=== PATIENT | male | born 1965 | race Caucasian/White ===

== ENCOUNTER 2019-03-24 14:27 | Inpatient (IN) | payer OTHER ==
[~2019-03-24] VITALS: Ht 152.4 cm; Wt 83.8 kg
[2019-03-24 14:29] VITALS: BP 128/77
[2019-03-24] MEDS ORDERED: PROTONIX40 M2 PO (14:47)
[2019-03-24] MEDS ORDERED: NORCO 5-325 TA1 EAC1 PO (14:48)
[2019-03-24] MEDS ORDERED: CULTURELLE KID1 EAC1 PO (14:48)
[2019-03-24] MEDS ORDERED: FEOSOL325 M1 PO (14:49)
[2019-03-24] MEDS ORDERED: TESSALON PERLE100 M1 PO (14:49)
[2019-03-24] MEDS ORDERED: ZOFRAN4 MG PO (14:50)
[2019-03-24] MEDS ORDERED: VENTOLIN HFA 1818 GM INH (14:50)
[2019-03-24] MEDS ORDERED: OLANZAPINE15 M1 PO (14:51)
[2019-03-24] MEDS ORDERED: SODIUM BICARBO650 M3 PO (14:51)
[2019-03-24] MEDS ORDERED: COLACE100 MG PO (14:52)
[2019-03-24] MEDS ORDERED: LOPRESSOR50 MG PO (14:52)
[2019-03-24] MEDS ORDERED: D3-501250 MCG PO (14:55)
[2019-03-24] MEDS ORDERED: NORVASC 2.5 MG2.5 M1 PO (14:56)
[2019-03-24] MEDS ORDERED: DEPAKOTE ER500 M1 PO (14:57)
[2019-03-24 16:20] LABS: HEMATOCRIT 33.2 % (42.0-52.0); HEMOGLOBIN 10.6 gm/dL (14.0-18.0); MCH 27.1 pg (26.0-34.0); MCHC 31.9 g/dL (28.0-37.0); MCV 85.1 fL (80.0-100.0); PLATELET COUNT 388 thou/uL (150-400); RDW 17.3 % (10.5-14.5); WBC 14.7 thou/uL (4.0-11.0)
[2019-03-24 16:28] LABS: CALCIUM 8.9 mg/dL (8.5-10.1); CREATININE 1.5 mg/dL (0.7-1.3); POTASSIUM 3.8 mmol/L (3.5-5.1)
[2019-03-24 16:34] LABS: ALBUMIN 2.5 g/dL (3.4-5.0); TOTAL BILIRUBIN 0.2 mg/dL (<0.1-1.0); TOTAL PROTEIN 8.8 g/dL (6.4-8.2)
[2019-03-24 16:36] LABS: ABSOLUTE NEUTROPHILS 11.2 thou/uL (1.4-8.2); PLATELET ESTIMATE NORMAL
[2019-03-24 16:55] VITALS: BP 113/63
--- NOTE | 2019-03-24 18:55 | NUR ---
TECH TO TRANSPORT PATIENT TO CT SCAN THEN TO ROOM 440
[2019-03-24 18:58] VITALS: BP 113/65
[2019-03-24 19:50] VITALS: BP 140/71
[2019-03-25 03:20] VITALS: BP 99/55
--- NOTE | 2019-03-25 04:21 | NUR ---
PT TO UNIT AT 2210. ORIENTED TO UNIT, NURSE AND CALL LIGHT. ADMISSION ASSESSMENT COMPLETED. UNABLE TO SIGN CONSENTS DUE TO INABILITY TO WRITE, BUT VERBAL CONSENT WAS GIVEN. WOUNDS PHOTOGRAPHED AND PUT IN CHART. A&OX4. PAIN MEDS GIVEN ALONG WITH OTHER PM MEDS. MOTHER CALLED TO CHECK IN, PROVIDED UPDATE. PT ON ISOLATION FOR MRSA IN WOUND. WILL CONTINUE TO MONITOR TRHOUGHOUT THE NIGHT BUT CURRENTLY SLEEPING.
[2019-03-25 06:11] LABS: HEMATOCRIT 32.6 % (42.0-52.0); HEMOGLOBIN 10.3 gm/dL (14.0-18.0); MCH 27.2 pg (26.0-34.0); MCHC 31.7 g/dL (28.0-37.0); MCV 85.7 fL (80.0-100.0); RBC 3.8 mil/uL (4.50-6.00)
[2019-03-25 06:27] LABS: CREATININE 1.5 mg/dL (0.7-1.3); POTASSIUM 3.7 mmol/L (3.5-5.1)
[2019-03-25 08:15] VITALS: BP 117/57
[2019-03-25 15:50] VITALS: BP 128/69
--- NOTE | 2019-03-25 16:00 | NUR ---
Received awake on bed. Due medications given as prescribed, able to swallow meds w/o diffculty. On room air, PRN O2 at 1lpm. Vital signs stable. On blood sugar monitoring-taken and recorded accordingly, with sliding scale insulin given as prescribed. With urostomy in place- secured; output measured and recorded accordingly. With colostomy in place- output measured and recorded accordingly. With SL at R AC- on IV antibiotics. With ST 4 pressure sore on buttocks- pt turned regularly. Visited by his mother today. Pt complained of pain, due PRN pain medications given as prescribed. 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 Assisted in eating, drinking and ADLs. Asked physician re: adding another pain medication or increasing frequency of current one because pt still complains of pain with current medication. Wound dressing on pt's bottom intact- changed this morning by Dr Tse. To continue monitoring patient.
[2019-03-25 19:44] VITALS: BP 141/67
[2019-03-26 04:15] VITALS: BP 134/69
[2019-03-26 08:20] VITALS: BP 135/63
--- NOTE | 2019-03-26 08:31 | NUR ---
PT LYING IN BED. LORTAB PROVIDING PAIN RELIEF. NO NEEDS VOICED. CALL LIGHT WITHIN REACH. FREQUENT OBSERVATION.
--- NOTE | 2019-03-26 11:30 | HC ---
[facility] [place] [address] CONSULTATION Name: AIDA HWANG Room #: 440-P ADM IN M.R.#: [id number] Admission: 03/24/19 Attend Phys: Kenzie Blanton MD Discharge: Date of : 67 Report #: [id number] THIS REPORT FOR: cc: Karin Morales,Scotty Ludwig MD ~ THIS REPORT FOR: //name// CC: Karin Blanton DATE OF SERVICE: 03/25/2019 WOUND CARE CONSULTATION REASON FOR CONSULTATION: The patient with paraplegia secondary to spina bifida with infected decubitus ulcers. HISTORY OF PRESENT ILLNESS: The patient is a 54-year-old gentleman with chronic immobility, paraplegia secondary to spina bifida, admitted with concern of infected decubitus ulcers. He has a history of MRSA and cultures were done. CT scan done on admission showed decubitus ulcers of bilateral ischial regions with possible bony destruction of the right ischium. The patient has a diverting colostomy and ileal conduit. Wound care is consulted due to his decubitus ulcers to evaluate for any possible need of general surgical debridement. PAST MEDICAL HISTORY: 1. Spina bifida with chronic immobility. 2. History of MRSA infection. 3. History of renal insufficiency. PAST SURGICAL HISTORY: Ileal conduit, right abdomen colostomy, left abdomen. ALLERGIES: POLLEN AND PHENYTOIN. MEDICATIONS: Include Protonix, [place], Tessalon, Feosol, Zofran, Ventolin, Lopressor, Colace, Norvasc, and Depakote. SOCIAL HISTORY: The patient has been chronically immobile due to his spina bifida. REVIEW OF SYSTEMS: Noncontributory. PHYSICAL EXAMINATION: GENERAL: Shows chronically ill-appearing obese, middle-aged gentleman, who is alert, pleasant, and conversant. [facility] [address] [facility] [place] [address] CONSULTATION Name: AIDA HWANG Room #: 440-P [facility] IN .R.#: [id number] Admission: 03/24/19 Attend Phys: Kenzie Blanton MD Discharge: Date of : 67 Report #: [id number] HEENT: Mucous membranes are moist. NECK: Supple. ABDOMEN: Soft with right-sided ileal conduit and left-sided colostomy. There is an apparent abdominal wall hernia in the midline with some excoriation of the skin and superficial crusted eschar. EXTREMITIES: Lower extremities are atrophic and flaccid with no wounds. Examination of the patient's back shows some chronic excoriation of the skin of the sacrum and buttocks. He has a significant chronic stage 4 pressure ulcer of the right ischium measuring 5 cm x 4 cm x 1 cm deep with exposed bone at the base. This appears chronic. There is no soft tissue debridement needed. Bone is palpable with clinical osteomyelitis. The patient has a contralateral left ischial pressure ulcer measuring 7 x 8 cm, which is superficial with chronic granulation tissue. In the right groin crease, there is maceration of the skin with granulation. IMPRESSION: 1. Spina bifida with paraplegia. 2. Immobility. 3. Status post cerebrovascular accident. 4. Diabetes mellitus type 2 with skin ulceration. 5. Right ischial stage 4 pressure ulcer with palpable exposed bone, possible osteomyelitis on CT scan. 6. Chronic stage 4 pressure ulcer of left ischium with chronic granulation tissue. 7. Open granulating wound of right groin. PLAN: 1. Order zinc oxide barrier cream for the skin of his sacrum and buttocks. 2. Quarter strength Dakin's packing to the open wounds of the right and left ischium and the right groin crease, ABD pads in the groin folds to absorb moisture. 3. The patient's ischial decubitus wound did not require soft tissue debridement. Ultimately, Plastic Surgery consultation for debridement and consideration of flap repair may be necessary for healing of his right ischial wound. We would recommend topical treatment quarter strength Dakin's packing twice daily, IV antibiotics and stabilization. No General Surgery debridement needed. No evidence of abscess or deep tunneling. May consider wound VAC therapy for right ischial wound. Wound care team will follow. <ELECTRONICALLY SIGNED> By: Scotty Tse MD 03/26/19 1130 [id number] Scotty Tse MD /nt
[2019-03-26 16:02] VITALS: BP 148/71
--- NOTE | 2019-03-26 16:24 | HC ---
[facility] [place] [address] CONSULTATION Name: AIDA MALAVE Room #: 440-P ADM IN M.R.#: [id number] Admission: 03/24/19 Attend Phys: Kenzie Blanton MD Discharge: Date of : 67 Report #: [id number] THIS REPORT FOR: cc: Karin Morales,Karin Hager,Kodak Landin MD ~ THIS REPORT FOR: //name// CC: Karin Blanton DATE OF SERVICE: 03/25/2019 CONSULTATION: Infectious diseases. HISTORY OF PRESENT ILLNESS: Aida Malave is a 54-year-old white male [place] [facility] his jail to acute care because of bilateral ischial decubitus ulcers, osteomyelitis, and resistant hiram. The patient is paraplegic due to spina bifida. His care was further complicated by diabetes as well as schizophrenia. He tells me he had intact skin last summer, but has developed progressive decubitus ulcers. He was prescribed 6 weeks of Zosyn. He has had VAC dressings. He cannot really give me a clear time line. The patient had cultures of the wound done at [facility] where he lives. The right hip grew moderate growth of Pseudomonas aeruginosa which was resistant to ceftazidime and intermediately susceptible to Cipro, cefepime and aztreonam. 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 This organism was resistant to all antibiotics tested except for amikacin including resistance to meropenem. Clinically, the patient really does not feel bad. He has paraplegia with chronic neuropathic pain from the waist down. It does not sound like this is any different and he is requesting Percocet on a regular basis for pain control. PAST MEDICAL HISTORY: The patient as noted has diabetes with hypertension. He has schizophrenia with bipolar components. He has had a stroke in the past. He has paraplegia from spina bifida. PAST SURGICAL HISTORY: Includes an ileal conduit for urinary diversion, colostomy for fecal diversion. ALLERGIES: I do not believe the patient has any drug allergies. SOCIAL HISTORY: The patient has been living in a jail since his father in 2004. He said at that time he quit using tobacco and alcohol as well. He is generally bedfast. He says he will get up to the wheelchair "when the staff has time." [facility] [address] [place] [address] CONSULTATION Name: AIDA MALAVE Room #: 440-P [facility] IN ..#: [id number] Admission: 03/24/19 Attend Phys: Kenzie Blanton MD Discharge: Date of : 67 Report #: [id number] REVIEW OF SYSTEMS: Negative. The patient denies any fevers, chills, sweats. Denies any head, neck or chest complaints. Denies nausea, vomiting. He has colostomy and ileostomy without problems. He has chronic neuropathic pain in his lower extremity. PHYSICAL EXAMINATION: GENERAL: The patient appears his stated age, somewhat unkempt, but pleasant and interactive. Not in any distress. VITAL SIGNS: Normal. The patient is afebrile. SKIN: Shows no rash nor exanthem. He has bilateral ischial wounds. The right is worse than the left. It measures about 6 x 4 cm with significant depth. There is also an area of wound reported under the panus of his abdomen in the groin. I was unable to see there because of patient discomfort trying to lift the pannus. ENT: Negative. Dentition is good. HEART: Sounds normal. LUNGS: Clear. ABDOMEN: Belly obese, soft, not tender. Lower midline ventral hernia Extremities - paraplegia LABORATORY DATA: The white count on admission was 14.7, is now down to 12, hemoglobin 10.3, platelets 348,000. Electrolytes are normal. BUN 51, creatinine 1.5. The alkaline phosphatase is normal. The SGOT is elevated at 79, SGPT at 69. The urine cultures growing Proteus. Blood culture is negative so far. CT scan suggests bony destruction under the wound on the right. The report on the left ischium was a bit ambiguous. This was a CT without contrast, which has some limitations in diagnosing early osteomyelitis. Cultures from the jail as noted above. Carbapenem-resistant Acinetobacter baumannii (CRAB) is extremely difficult bacteria to treat. We are often left with antibiotics, which are very toxic like polymyxin or colistin. There are newer drugs, which have demonstrated good activity against CRAB including Vabomere, Avycaz, Zerbaxa. Tygacil sometimes showed good activity. Sometimes minocycline or rifampin have been used as synergy with other drugs. This organism demonstrates susceptibility to amikacin, which is also very expensive and toxic drug. The resistance to tobramycin and gentamicin suggest that the amikacin susceptibility may not be stable. At this time, I would like to stop the antibiotic therapy and repeat the culture. We need to get a culture of the isolate to test for antibiotic susceptibility. These drugs are all difficult, so I hesitate to use empiric therapy, particularly in a patient that is essentially asymptomatic. Generally, the kind of medications taken to control this organism are not affordable at a [facility] unit level reimbursement. The patient will probably need to go [facility] [address] [place] [address] CONSULTATION Name: AIDA MALAVE Room #: 440-P ADM IN ..#: [id number] Admission: 03/24/19 Attend Phys: Kenzie Blanton MD Discharge: Date of : 67 Report #: [id number] to an LT or tertiary care center. We can initiate routine wound care per Dr. Granados. I will check a hemoglobin A1c, TSH and zinc level looking for any metabolic impediments to wound healing. We will need a low air loss mattress as the patient has bilateral wounds and really cannot be rolled in any position off the wound. We will have case management start working on placement. We will notify infection control. I know in [place] this organism is reportable to the state. I am not sure about [place]. The patient will need strict contact isolation. We can discontinue the vancomycin as this generally will not be effective for these isolates. Although the patient does have a positive urine culture, this comes from an ileal conduit. Asymptomatic bacteriuria is expected from this urine and does not require specific treatment. Dr Guthrie will return on Wednesday. I will leave it to him to analyze the cultures and see what treatment optionsw are available. I appreciate the opportunity of input in the care of this complex patient. We will get some of the study started. Dr. Guthrie will return on Wednesday for further followup and antibiotic choice. <ELECTRONICALLY SIGNED> By: Kodak Lr MD 03/26/19 1624 [id number] Kodak Lr MD /cecilio
--- NOTE | 2019-03-26 18:23 | NUR ---
Assumed care of pt at 0700. Pt a&ox4. C/o pain. Prn pain meds administered. Dressings changed. Some bleeding noted with dressing change. Q2h turn. Urostomy and colostomy bag in place. Fall precautions in place. No other concerns noted.
[2019-03-26 20:00] VITALS: BP 144/74
[2019-03-27 04:06] LABS: GLYCOHEMOGLOBIN (HGB A1C) 5.7 % (4.8-5.6)
[2019-03-27 04:25] VITALS: BP 112/69
[2019-03-27 07:23] VITALS: BP 122/63
--- NOTE | 2019-03-27 08:00 | NUR ---
PT LYING IN BED. LORTAB AND OXY IR PROVIDING PAIN RELIEF. RESTING COMFORTABLY. NO NEEDS VOICED. CALL LIGHT WITHIN REACH. FREQUENT OBSERVATION.
--- NOTE | 2019-03-27 09:56 | NUR ---
Assess due to pt with hx spina bifida and admitted with sacral wound infection bilateral IT stage IV wounds. wound care following. BG good control and pt eating 100% of all meals. No hx wt loss per pt. Pt would like to have Ensure Max supplement bid-will order. Low nutrition risk otherwise.
--- NOTE | 2019-03-27 11:31 | NUR ---
Received awake on bed. Due medications given as prescribed- able to swallow meds w/o difficulty. A+O. On room air. Vital signs stable. On blood sugar monitoring- taken and recorded accordingly. On carb controlled diet- tolerating well; no nausea, no vomiting and no abdominal pain noted. With suprapubic catheter in place- draining well; with colostomy in place- checked, output measured and recorded accordingly. With sacral wound- dressing in place; C/D/I, pt turned frequently. Assisted in ADLs. With SL at R Hand. Maintained on isolation due to MRSA. On Latex allergy precautions. A/W wound culture- to obtain specimen. Complained of pain, due PRN pain medications given as prescribed. To continue monitoring patient.
--- NOTE | 2019-03-27 15:27 | NUR ---
PT ADMITTED RELATED TO INFECTED SACRAL WOUND, ELEVATED LFT, RENAL INSUFF. CM REVIEWED CHART AND SPOKE WITH CARE TEAM. CM MET WITH PT AT BEDSIDE THIS DAY. PT IS A&O X4. CM ROLE INTRODCUED. PT INDICATED HE LIVES OVER AT [facility] AND THAT HE HAD BEEN THERE A FEW YEARS. PT INDICATED HIS MOTHER IS HIS EMERGENCY CONTACT AND THAT SHE LIVES IN [place]. PT INDICATED FACILITY HAD USED CECILIO LIFT, HOSPITAL BED, AND WHEELCHAIR TO ASSIST HIM WITH MOBILITY CARDIAC CARE NURSE. PT INDICATED HE HOPED TO BE ABLE TO RETURN TO [facility] ONCE MEDICALLY STABLE. PT WAS AWARE AND CM SPOKE WITH HIM ABOUT POSSIBLE GOING TO LTAC DUE TO HIGH COST OF RECOMMENDED IV ABX UPON DC. PT WAS RELUCTANT BUT UINDERSTOOD INDICATED THAT HE DIDN'T HAVE A PREFERENCE FOR ANY SPECIFIC LTAC. PT WON'T HAVE REV CODES SO WOULD BE SITE NUTERAL. CM TO SEND REFERRAL. CM TO FOLLOW INDICATED WITH DC PLANNING.
[2019-03-27 16:02] VITALS: BP 145/69
[2019-03-27 20:09] VITALS: BP 135/76
--- NOTE | 2019-03-28 02:20 | NUR ---
ASSUMED CARE OF PT AT 1900HRS. PT IS AOX4 AND LETS NEEDS BE KNOWN. FALL PRECAUTION IN PLACE. PT REPORTED SOME PAIN AND WAS TREATED WITH PRN PAIN MEDS. PT TURNED Q2H. RN SPOKE TO PT'S MOTHER (ATUL) AND ATUL TOLD LIKE TO BE INVOLVED IN PT'S DC PLANNING. PT WAS ABLE TO GET COMFORTABLE AND SLEEP PART OF THE SHIFT. VSS AND NO S/S OF ACURE DISTRESS. WILL CONTINUE TO MONITOR.
[2019-03-28 07:43] VITALS: BP 108/64
--- NOTE | 2019-03-28 09:36 | NUR ---
OSTOMY CARE CALLED TO SEE PT POUCHES ON SEVERAL DAYS? PT DID NOT BRING ANY SUPPLIES TO HOSP,ALERT AND COOPERATIVE, UROSTOMY STOMA RED VIABLE BUDDED, PERISTOMAL AREA INTACT, NEW POUCH COLTON PRECUT CONVEX 1 02/25' APPLIED AND CONNECTED TO DEP DRAINAGE, CLEAR YELLOW URINE NOTED, NEW POUCH COLTON CUT TO FIT COLOSTOMY, STOMA PINK VIABLE SLIGHTLY BUDDED W/ SOFT FORMED STOOL, SUPPLIES PLACED AT BS, WILL FOLLOW PRN RECOMMENDATIONS; CHANGE APPLIANCES Q 3-5 DAYS AND PRN, SUPPLIES AT BS BUILDING CUSTODIAL SUPERVISOR AWARE
[2019-03-28 15:07] VITALS: BP 132/77
--- NOTE | 2019-03-28 16:18 | NUR ---
CARE TEAM DETERMINING ID PT NEEDS SURGICAL INTERVETNION. ID FOLLOWING AWAITING CULTURES. CM TO FOLLOW INDICATED WITH DC PLANNING. CLINICAL UPDATES SENT TO [facility].
--- NOTE | 2019-03-28 19:45 | NUR ---
Received awake on bed. Due medictions given as prescribed, able to swallow meds w/o difficulty. A+O. On room air. Vital signs stable. Assisted in ADLs, pt paraplegic. Assisted in eating and drinking, compliant with supplements. Pt turned regularly on his side. With SL at R hand- intact. On blood sugar monitoring- taken and recorded accordingly. With urostomy and colostomy in place- both changed today by ostomy nurse- output measured and recorded accordingly. Maintained on isolation due to MRSA. On latex protocol as well. With dressing at sacrum- changed today; C/D/I. Pt on low airloss mattress. CM informed that pt's mother wants to be involved and updated re: placement. Wound cultures done and sent this morning by manufacturing supervisor 2nd shift, a/w cultures. To continue monitoring patient.
[2019-03-28 21:15] VITALS: BP 137/63
--- NOTE | 2019-03-29 02:45 | NUR ---
ASSUMED CARE OF PT AT 1900HRS. PT IS AOX4 AND LETS NEEDS BE KNOWN. FALL PRECAUTION IN PLACE. PT TURNED Q2H. PT REPORTED SOME PAIN AND WAS TREATED WITH PRN PAIN MEDS. PT WAS ABLE TO GET COMFORTABLE AND SLEEP PART OF THE SHIFT. VSS AND NO S/S OF ACUTE DISTRESS. WILL CONTINUE TO MONITOR.
[2019-03-29 08:00] VITALS: BP 127/74
--- NOTE | 2019-03-29 11:04 | NUR ---
Received awake on bed. Due medications given as prescribed, able to swallow meds w/o difficulty. On room air. Vital signs stable. On carb controlled diet- tolerating well, assisted in eating and drinking- compliant with supplements- no nausea, no vomiting and no abdominal pain noted. On blood sugar monitoring- taken and recorded. With SL at R hand. With urostomy in place- draining well, output measured and recored accordingly; with colostomy in place- output measured and recorded accordingly. Maintained on isolation due to MRSA. Pt paraplegic, assisted in ADLs, turned on his sides frequently, on low airloss mattress. Complained of pain, due PRN pain medication given as prescribed. With sacral wound- dressing in place; photo to be taken and dressing to be changed today. Falls bundle in place.
--- NOTE | 2019-03-29 12:17 | NUR ---
WOUND CARE F/U ROUNDING W/ DR HARLEEN RUIZ, WOUNDS ASSESSED L ISCHIAL AND R TROCHANTER, SOME RED VIABLE TISSUE PRESENT, MINIMAL YELLOW SLOUGH, PT ALERT, COOPERATIVE, DESIGN TEACHER INFORMED OF NEED FOR PHOTOS TODAY. REMAINS ON LOW AIR LOSS, REMINDED OF IMPORTANCE OF OFF LOADING, PRESSURE RELIEF RECOMMENDATIONS CONT CURRENT TX,GENTAMICIN,DAKINS DAILY. CONT LOW AIR LOSS PUMP TO BED STAFF AWARE
[2019-03-29 16:09] VITALS: BP 118/72
--- NOTE | 2019-03-29 16:58 | NUR ---
CM CALLED TRANSFER CENTER AT SPOKE WITH [facility]IN[facility] INFO FAXED FOR REVIEW FOR POSSIBLE ADMISSION FOR BONY DEBRIDEMENT AND FLAP RECONSTRUCTION. PROVIDED DR. COOK'S CONTACT NUMBER. TRANSFER FORM AND [employer] FORM PLACED WITH CHART COPY IN PT'S W[employer]. CM SPOKE WITH PT'S MOTHER SHE ASKED TO BE UPDATED ON TRANSFER STATUS. CM TO FOLLOW INDICATED WITH DC PLANNING.
[2019-03-29 19:15] VITALS: BP 121/72
[2019-03-30 05:14] VITALS: BP 117/70
[2019-03-30 07:41] VITALS: BP 87/62
--- NOTE | 2019-03-30 07:52 | NUR ---
ASSUMED CARE AROUND 191. AXOX3. ISO MAINTAINED. VSS. PERSISTENT PAIN TO GENERALIZED BODY. WHILE GIVING REPORT TO INCOMING RN, DISCOVERED THAT IV CATHETER WAS PULLED OUT. INCOMING RN AT BEDSIDE. NO S/S ACUTE DISTRESS NOTED OR REPORTED AT THIS TIME. CARE TRNASFERRED TO INCOMING RN AT THIS TIME.
--- NOTE | 2019-03-30 11:02 | NUR ---
OSTOMY CARE UROSTOMY POUCH LOOSE, NEW POUCH COLTON 1 1/4' CONVEXITY APPLIED AND CONNECTED TO DEP DRAINAGE, STOMA PINK VIABLE SLIGHTLY BUDDED W/ CLEAR YELLOW URINE NOTED, POUCH CHANGED TO COLOSTOMY STOMA, STOMA PINK VIABLE, FLAT W/ SKIN SURFACE, NEW POUCH COLTON CUT TO FIT APPLIED W/ ADAPT RING UNDER WAFER, SOFT DARK BROWNISH/GREEN STOOL NOTED, PT ALERT AND COOPERATIVE, SUPPLIES AT BS RECOMMENDATIONS CONT ROUTINE OSTOMY CARE, CHANGE APPLIANCES Q 3-5DAYS AND PRN TIN FLOPPER AWARE
[2019-03-30 12:21] VITALS: BP 127/75
--- NOTE | 2019-03-30 13:28 | NUR ---
DISCHARGE PLANNING. PATIENT RESIDES AT [facility][1]. PLAN IS FOR PATIENT TO RETURN TO [facility], POSSIBLY TODAY. PATIENT CLINCAL INFORMATION FAXED TO [facility] ADMISSIONS. CALL PLACED TO [facility] TO NOTIFY. FOLLOWING.
[2019-03-30] MEDS ORDERED: GENTAMICIN SULF15 GM TOP (16:27)
--- NOTE | 2019-03-30 16:48 | NUR ---
ONCE ИРИНА DEGROOT ROUNDS AND PUTS IN FINAL ABX RECS CALL KELLI AT [facility] . WITH DRUG AND FOR TRASPORT. SHE WILL PROVIDE NUMBER FOR REPORT AND FAX FOR ORDERS.
--- NOTE | 2019-03-30 18:40 | NUR ---
Assumed patient care at 0715. Vital signs stable. Patient has had a Student Nurse assisting him with cares and medications until approximately 1600. Patient requires total care. Colostomy bag and Ileostomy Bags changed per Ostomy nurse. Dr Guthrie and Dr Mccloud came to assess patient, as well as Dr Swann. Discharge is Pending, plan is for tomorrow. Patient no longer has an IV. He is supposed to get a PICC Line placed prior to Discharge. Will report to on-comimg nurse.
[2019-03-30 19:30] VITALS: BP 115/71
--- NOTE | 2019-03-31 07:16 | NUR ---
ASSUMED PT CARE AROUND 1929. AXOX3. VSS. PAIN MEDS ADMIN PER MD ORDER. COLOSTOMY/UROSTOMY INTACT. NO S/S ACUTE DISTRESS NOTED OR REPORTED AT THIS TIME. WILL CONT TO MONITOR FOR ANY CHANGES IN CONDITION.
[2019-03-31 07:43] VITALS: BP 111/69
[2019-03-31 08:53] LABS: ABSOLUTE NEUTROPHILS 5.8 thou/uL (1.4-8.2); BASOPHILS 0.9 % (0.0-2.0); EOSINOPHILS 5.7 % (0.0-3.0); HEMATOCRIT 34.8 % (42.0-52.0); HEMOGLOBIN 10.8 gm/dL (14.0-18.0); LYMPHOCYTES 23.9 % (24.0-44.0); MCH 26.6 pg (26.0-34.0); MCV 85.8 fL (80.0-100.0); MONOCYTES 9.8 % (1.0-8.0); PLATELET COUNT 333 thou/uL (150-400); POLYS 59.7 % (36.0-66.0); RBC 4.05 mil/uL (4.50-6.00); RDW 16.2 % (10.5-14.5); WBC 9.7 thou/uL (4.0-11.0)
[2019-03-31 09:03] LABS: ALBUMIN 2.4 g/dL (3.4-5.0); CALCIUM 8.9 mg/dL (8.5-10.1); CREATININE 1.8 mg/dL (0.7-1.3); POTASSIUM 4.2 mmol/L (3.5-5.1); TOTAL BILIRUBIN 0.2 mg/dL (<0.1-1.0); TOTAL PROTEIN 8.7 g/dL (6.4-8.2)
[2019-03-31 12:02] VITALS: BP 115/71
--- NOTE | 2019-03-31 18:48 | NUR ---
Patient was discharged at approximately 1800 with Transport to [facility]. Patient's vital signs stable. Wound care completed after taking pictures. Unable to measure sacral area wound due to patient's intolerance and bleeding. Patient attempted to sign Discharge Paperwork, gave up because his hands are contracted and he was shaking. Discharge packet sent with patient, as well as Colostomy, Ileostomy and wound care supplies. POC followed.
== END 2019-03-31 18:36 | DRG 592 ==
LOC: ER 14:27 → 4S 17:57 → EROBS 17:57 → 4S 18:14 → 4W 03-27 17:17
PROVIDERS: Internal Medicine Infectious Disease; Nurse Practitioner Family; Specialist; ADMIT Internal Medicine
DX: L89.154 Pressure ulcer of sacral region, stage 4 (principal); E43 Unspecified severe protein-calorie malnutrition; G82.20 Paraplegia, unspecified; M86.8X8 Other osteomyelitis, other site; E11.69 Type 2 diabetes mellitus with other specified complication; N18.9 Chronic kidney disease, unspecified; F31.9 Bipolar disorder, unspecified; E11.622 Type 2 diabetes mellitus with other skin ulcer; E66.9 Obesity, unspecified; B96.4 Proteus (mirabilis) (morganii) as the cause of diseases classified elsewhere; B96.5 Pseudomonas (aeruginosa) (mallei) (pseudomallei) as the cause of diseases classified elsewhere; F20.9 Schizophrenia, unspecified; I12.9 Hypertensive chronic kidney disease with stage 1 through stage 4 chronic kidney disease, or unspecified chronic kidney disease; D64.9 Anemia, unspecified; Z86.73 Personal history of transient ischemic attack (TIA), and cerebral infarction without residual deficits; Z93.3 Colostomy status; Z93.50 Unspecified cystostomy status; Z88.8 Allergy status to other drugs, medicaments and biological substances; Z86.14 Personal history of Methicillin resistant Staphylococcus aureus infection; Q05.9 Spina bifida, unspecified; Z91.040 Latex allergy status; Z68.36 Body mass index [BMI] 36.0-36.9, adult; Z74.01 Bed confinement status; L89.894 Pressure ulcer of other site, stage 4
CPT/HCPCS: 10047; 10102

== ENCOUNTER → 2019-04-10 | Outpatient (CLI) | payer OTHER ==
[~2019-04-10] MED LIST: COLACE100 MG PO; CULTURELLE KID1 EAC1 PO; D3-501250 MCG PO; DEPAKOTE ER500 M1 PO; FEOSOL325 M1 PO; GENTAMICIN SULF15 GM TOP; LOPRESSOR50 MG PO; NORCO 5-325 TA1 EAC1 PO; NORVASC 2.5 MG2.5 M1 PO; OLANZAPINE15 M1 PO; PROTONIX40 M2 PO; SODIUM BICARBO650 M3 PO; TESSALON PERLE100 M1 PO; VENTOLIN HFA 1818 GM INH; ZOFRAN4 MG PO
== END ==
LOC: HYPER 11:37
DX: E11.622 Type 2 diabetes mellitus with other skin ulcer (principal); L89.223 Pressure ulcer of left hip, stage 3; L89.214 Pressure ulcer of right hip, stage 4; L89.154 Pressure ulcer of sacral region, stage 4; L98.491 Non-pressure chronic ulcer of skin of other sites limited to breakdown of skin; R21 Rash and other nonspecific skin eruption; Q05.9 Spina bifida, unspecified; G82.20 Paraplegia, unspecified; Z87.891 Personal history of nicotine dependence; Z86.14 Personal history of Methicillin resistant Staphylococcus aureus infection; Z93.6 Other artificial openings of urinary tract status; Z93.3 Colostomy status; Z86.73 Personal history of transient ischemic attack (TIA), and cerebral infarction without residual deficits; F41.9 Anxiety disorder, unspecified

== ENCOUNTER → 2019-08-23 | Outpatient (CLI) | payer OTHER | LOC: HYPER 08:34 | PROVIDERS: ATTEND Emergency Medicine Emergency Medical Services | DX: E11.622 Type 2 diabetes mellitus with other skin ulcer (principal); L89.223 Pressure ulcer of left hip, stage 3; L89.214 Pressure ulcer of right hip, stage 4; L98.491 Non-pressure chronic ulcer of skin of other sites limited to breakdown of skin; R21 Rash and other nonspecific skin eruption; Q05.9 Spina bifida, unspecified; G82.20 Paraplegia, unspecified; F41.9 Anxiety disorder, unspecified; Z87.891 Personal history of nicotine dependence; Z86.73 Personal history of transient ischemic attack (TIA), and cerebral infarction without residual deficits; Z93.3 Colostomy status; Z86.14 Personal history of Methicillin resistant Staphylococcus aureus infection; Z93.6 Other artificial openings of urinary tract status ==